=== PATIENT | male | born 1995 | race Caucasian/White ===

== ENCOUNTER 2018-04-04 07:19 | Observation (INO) ==
[2018-04-04] MEDS ORDERED: 0.9 % Sodium Chloride 1,000 ML IVC ONE (07:23)
--- NOTE | 2018-04-04 07:26 | Emergency Department Note ---
Disposition Clinical Impression: Alcoholic intoxication Disposition: Admitted As Inpatient Condition: Fair Forms: ED Satisfaction Letter Time of Disposition: 09:15 Altered Mental Status HPI - General Chief Complaint: ED Alcohol Abuse Stated Complaint: ALCOHOL INTOXICATION Time Seen by Provider: 04/04/18 07:22 Source: EMS Mode of arrival: EMS Limitations: altered mental status Nursing Notes Reviewed: Yes Vital Signs Reviewed: Yes - History of Present Illness MD complaint: altered mental status, intoxication Onset (ago): hour(s) Timing confirmed by: family member (Family went to bed at 2:00 in the evening an d he was okay and when they woke up at 6:00 this morning he was out.) Context: other (Patient was drinking last night. Reportedly drinking some kind of punch.) - Related Data Home Medications Medication Instructions Recorded Confirmed No Known Home Drugs 04/04/18 04/04/18 Allergies Allergy/AdvReac Type Severity Reaction Status Date / Time No Known Allergies Allergy Verified 04/04/18 07:20 Limitations: ROS unobtainable due to patients medical condition (Patient is intoxicated and not opening his eyes or being verbal) Gastrointestinal: Reports: vomiting Past Medical History - Past Medical History Source: nursing notes reviewed, other (EMS) Physical Exam - General Limitations: altered mental status General appearance: lethargic - Head Head exam: atraumatic, normocephalic, normal inspection - Eye Eye exam: Present: PERRL. Absent: scleral icterus, conjunctival injection - ENT ENT exam: mucous membranes moist, normal external ear exam - Neck Neck exam: Present: normal inspection. Absent: lymphadenopathy - Chest Chest inspection: Present: normal inspection, symmetric chest wall rise. Absent: tenderness - Respiratory Respiratory exam: Present: normal lung sounds bilaterally. Absent: respiratory distress, wheezes - Cardiovascular Cardiovascular exam: Present: normal rhythm, tachycardia, normal heart sounds - Abdominal Exam Abdominal exam: Present: soft, Non-Tender, normal bowel sounds. Absent: distention - Extremities Exam Extremities exam: Present: normal inspection. Absent: pedal edema - Neurological Exam Neurological exam: Present: other (Patient was visibly moving all 4 extremities) - Skin Skin exam: Present: warm, dry. Absent: rash Course Course Narrative: Patient was drinking fruit punch and vodka through the course of the night. This morning was found obtunded/intoxicated by family. I am seeing no indication of airway compromise at this time. Seems like he is intoxicated. Rest of the exam is unremarkable. No history or physical exam findings of trauma. We will give the patient IV fluids and check some labs. My shift will be ending shortly so I will be turning this case over to the day physician, Dr. Christina. - Reevaluation(s) Reevaluation #1: 22-year-old who has been turned over to my care at 0800 hrs. he is still sleeping he is nauseated when he does awake and aches is advised me at this time that he is had bourbon and vodka mixed with fruit punch unknown quantity when they found him like this when they brought him in the ER patient still arouses patient's arousable in no distress stronger like that of EtOH on his breath pupils round there is a patent Rosoff supple trachea is midline chest crusting heart regular rate and rhythm abdomen is soft supple positive bowel sounds extremities show full range of motion cranial nerves II through XII intact spoke with Dr. Harman for admission due to his alcohol taking approximately 16 hours to bring him down into legal limits recommend hospitalization for IV hydration Altered Mental Status - Differential Diagnosis Likely: alcoholic intoxication, altered mental status - Lab Data Result diagrams: 04/04/18 07:30 04/04/18 07:30 TPA Checklist - LKW: 3-4.5 hrs Add. Warnings/Precautions Patient/family understanding: The patient/family members have been counseled and understood the risk, benefit, and alternatives of treatment. Critical Care Time Critical Care Time: Yes Total Critical Care Time: 20 Attestation: 20 minutes hypothetic clinically significant life-threatening deterioration patient condition as a separate portable procedures as result patient being significantly intoxicated with levels greater than 300
[2018-04-04 07:40] LABS: Basophils % 0.2 %; Eosinophils % 0.2 %; Hematocrit 43.5 % (37.5-50.1); Hemoglobin 14.8 g/dL (12.9-16.9); Immature Granulocytes % 0.2 % (0-4); Lymphocytes # 1.1 K/mcL (0.6-4.6); Lymphocytes % 18.8 %; Mean Corpuscular Hemoglobin 30.3 pg (28.0-33.3); Mean Corpuscular Volume 89.1 fL (83.0-100.0); Monocytes # 0.2 K/mcL (0.0-1.3); Monocytes % 3.4 %; Neutrophils # 4.5 K/mcL (1.6-8.9); Platelet Count 140 K/mcL (140-400); Red Blood Count 4.88 M/mcL (4.19-5.50); Red Cell Distribution Width 12.6 % (11.5-14.5); Segmented Neutrophils % 77.2 %
[2018-04-04 07:51] LABS: VBG Creatinine 0.78 mg/dL (0.72-1.25)
[2018-04-04 09:02] LABS: BUN/Creatinine Ratio 11 (6-26); Blood Urea Nitrogen 11 mg/dL (6-20); Calcium 8.1 mg/dL (8.6-10.3); Carbon Dioxide 27 mEq/L (23-29); Chloride 101 mEq/L (98-107); Ethanol 351 mg/dL (Less than 10); Glucose 166 mg/dL (70-105); Osmolality,Calculated 281 (280-300); Potassium 3.5 mEq/L (3.5-5.1); Sodium 134 mEq/L (136-145); eGFR For Non-African Americans > 60 (> 60)
[2018-04-04] MEDS ORDERED: Thiamine (B-1) 100 MG, Folic Acid 1 MG, MVI, adult with vitamin K 10 ML in 0.9 % Sodi... IVPB ONE (09:28)
[2018-04-04] MEDS ORDERED: 0.9 % Sodium Chloride 1,000 ML IVC SCH (09:30)
[2018-04-04] MEDS ORDERED: Naloxone 0.4 MG/ML INJ IVP PRN (11:00)
[2018-04-04 11:16] LABS: Amphetamine Screen,Urine Negative ng/mL (Cutoff=1000); Barbiturate Screen,Urine Negative ng/mL (Cutoff=200); Benzodiazepines Screen,Urine Negative ng/mL (Cutoff=200); Cannabinoid Screen,Urine Negative ng/mL (Cutoff = 50); Cocaine Screen,Urine Negative ng/mL (Cutoff= 300); Opiate Screen,Urine Negative ng/mL (Cutoff=300); Phencyclidine Screen,Urine Negative ng/mL (Cutoff=25)
--- NOTE | 2018-04-04 12:43 | Internal Med History&Physical ---
Date of Encounter: 04/04/18 Time of Encounter: 12:20 Assessment and Plan (1) Alcoholic intoxication Current visit: Yes Status: Acute He has been started on normal saline IV. He will be ordered anti-emetics and analgesics as needed. Qualifiers: Complication of substance-induced condition: uncomplicated Qualified Code(s): F10.920 - Alcohol use, unspecified with intoxication, uncomplicated (2) Hypocalcemia Current visit: Yes Status: Acute Calcium level was 8.1 in emergency room. Albumin level not done. Recheck labs tonight. (3) Hyperglycemia Current visit: Yes Status: Acute Glucose was 166 in emergency room. Check hemoglobin A1c and recheck glucose tonight. (4) Hyponatremia Current visit: Yes Status: Acute Sodium level was 133 in emergency room. Recheck tonight. Internal Medicine - H&P: HPI Chief complaint: Intoxication Admitted From: Emergency Dept Plans for Post Hospital Care: Home History of present illness: Mr. German Gaspar is a 22 year old male who was brought to emergency room after he was found unresponsive approximately 0545 today by friends at the house where he had been having [employer] party. He consumed bourbon, vodka, and punch in unknown quantities per ER report. Evaluation in emergency room show blood alcohol level of 351 MG/DL. He was minimally responsive. He was admitted to [facility] floor for ongoing care needs. He states he feels "fine" and simply wants to sleep. His mother supplies the past history and states he does not drink alcohol or use illicit drugs as far she is aware. Past Med Surg Social Fam HX - Past Medical History Medical history: no medical history Psychiatric history: no psych history - Past Surgical History Surgical History: no surgical history - Social History Smoking Status: Never smoker Alcohol use: occasionally Drug use: none Internal Medicine - H&P: Meds No Known Home Drugs 04/04/18 [History] Allergy/AdvReac Type Severity Reaction Status Date / Time No Known Allergies Allergy Verified 04/04/18 07:20 All Systems PM: A 10-system review of systems was performed and is negative for pertinent findings except as documented above in the HPI. Review of systems: Gen.: His mother thinks his weight has decreased approximately 10 pounds in the past 18 months since starting college Cardiovascular: No history of MO hypertension heart failure angina DVT or pulmonary embolus Respiratory: He uses electronic cigarettes. He has no known lung disease. GI: There is no known disorders of liver gallbladder or exocrine pancreas : No known hematuria dysuria or kidney stones Neurologic: No large distribution strokes seizures or syncope Endocrine: No known diabetes thyroid disease or hyperlipidemia Hematology/oncology: No known blood disorders cancers or anemia Psychiatric: No known anxiety depression or other mental health issues. [place] skeletal: He had "growing pains" in his legs as a child. There is no other known bone joint or muscle disorders. - Constitutional Vitals: Temp Pulse Resp BP Pulse Ox 98.4 F 77 16 94/56 99 04/04/18 11:00 04/04/18 11:00 04/04/18 11:00 04/04/18 11:00 04/04/18 11:00 Exam: Gen.: He is a well-developed well-nourished male lying in bed who appears in no acute distress. He is lethargic but awakens and answers some questions and follows commands. HEENT: Head is atraumatic and normal cephalic. Eyes: EOMI. There is no scleral icterus. Mouth: Mucosa is moist. Neck: Supple and nontender. There is no thyromegaly or adenopathy noted. Heart: Regular without murmurs gallops or ectopics Lungs: No wheezes or crackles are heard. Abdomen: Soft and nontender. No masses or guarding are noted. Extremities: There is no cyanosis edema or clubbing noted. Dorsalis pedis and posterior tibial pulses are 2 over 2 bilaterally. Neurologic: Mental status: He answers few questions and follows commands. He is not conversational. Cranial nerves: Smile is symmetric. Forehead wrinkles bilaterally. Tongue protrudes midline. EOMI. Motor: There is no pronator drift. Cerebellar: Finger to nose is intact bilaterally. Skin: Warm and dry Internal Med - H&P Results - Labs CBC & Chem 7: 04/04/18 07:30 04/04/18 07:30 Labs: Short CBC 04/04/18 Range/Units 07:30 WBC 5.9 (4.3-11.1) K/mcL Hgb 14.8 (12.9-16.9) g/dL Hct 43.5 (37.5-50.1) % Plt Count 140 (140-400) K/mcL Neutrophils # 4.5 (1.6-8.9) K/mcL [facility] 04/04/18 07:30 Sodium 134 L Potassium 3.5 Chloride 101 Carbon Dioxide 27 BUN 11 Creatinine 1.04 Glucose 166 H Calcium 8.1 L
[2018-04-04] MEDS ORDERED: Ondansetron 4 MG/2 ML VIAL IVP PRN (12:50)
[2018-04-04] MEDS ORDERED: Acetaminophen 325 MG TABLET PO PRN (12:50)
[2018-04-04] MEDS: 0.9 % Sodium Chloride 1,000 ML IVC SCH (16:27)
[2018-04-04 16:54] LABS: Alanine Aminotransferase 19 Units/L (7-52); Albumin 3.6 g/dL (3.5-5.7); Albumin/Globulin Ratio 1.7 (1.1-2.2); Alkaline Phosphatase 46 Units/L (34-104); Aspartate Amino Transferase 15 Units/L (13-39); BUN/Creatinine Ratio 8 (6-26); Bilirubin,Total 0.5 mg/dL (0.3-1.0); Blood Urea Nitrogen 7 mg/dL (6-20); Carbon Dioxide 26 mEq/L (23-29); Chloride 110 mEq/L (98-107); Globulin 2.1 g/dL (2.4-3.5); Glucose 101 mg/dL (70-105); Magnesium 1.7 mg/dL (1.6-2.6); Osmolality,Calculated 290 (280-300); Potassium 4.2 mEq/L (3.5-5.1); Sodium 141 mEq/L (136-145); Total Protein 5.7 g/dL (6.4-8.9); eGFR For Non-African Americans > 60 (> 60)
[2018-04-05] MEDS: 0.9 % Sodium Chloride 1,000 ML IVC SCH (02:11)
[2018-04-05 06:23] VITALS: BP 94/51
--- NOTE | 2018-04-05 09:41 | Discharge Summary ---
Date of Encounter: 04/05/18 Time of Encounter: 09:35 - Discharge Diagnosis (1) Alcoholic intoxication Priority: Primary Status: Resolved Qualifiers: Complication of substance-induced condition: uncomplicated Qualified Code(s): F10.920 - Alcohol use, unspecified with intoxication, uncomplicated (2) Hypocalcemia Priority: Secondary Status: Acute (3) Hyperglycemia Priority: Secondary Status: Resolved (4) Hyponatremia Priority: Secondary Status: Resolved Hospital course: Mr. German Gaspar is a 22 year old male who was brought to emergency room after he was found unresponsive approximately 0545 today by friends at the house where he had been having [employer] party. He consumed bourbon, vodka, and punch in unknown quantities per ER report. Evaluation in emergency room show blood alcohol level of 351 MG/DL. He was minimally responsive. He was admitted to [facility] floor for ongoing care needs. Initial orders were written by the emergency room physician. I saw him on April 04 and performed a history and physical. He was given IV fluids. He had clinical improvement and was able to ambulate and ingest adequate amount of food and fluids without difficulty. There were no new problems that developed and on the morning of April 05 he felt stable for discharge home. Follow-up lab work done the afternoon of April 04 showed normalization of hypo natremia and hyperglycemia. His calcium level was still slightly low at 8.0 with albumin 3.6. His PCP can follow up on this. He will follow with Dr. Xavier within 1 week. - Time Spent with Patient Total time spent providing and/or coordinating discharge services: - Discharge Medications Home Medications: No Known Home Drugs 04/04/18 [History] Allergies/Adverse Reactions: Allergy/AdvReac Type Severity Reaction Status Date / Time No Known Allergies Allergy Verified 04/04/18 07:20 Date of admission: 04/04/18 09:23 Primary care physician: Live Xavier M.D. - Constitutional Vitals: Temp Pulse Resp BP Pulse Ox 98.1 F 59 16 94/51 98 04/05/18 06:00 04/05/18 06:00 04/05/18 06:00 04/05/18 06:00 04/05/18 06:00 - Patient Status Disposition: Home, Self-Care Condition: Fair - Discharge Instructions Follow Up With: NONE,PCP [Primary Care Provider] - 1 week - Diet and Activity Activity: resume usual activities as tolerated Diet: advance to your usual diet
== END 2018-04-05 10:30 | disposition home or self-care (01) ==
LOC: INPPIK 07:19 → EMEROOPIK 07:19 → INPPIK 10:16
PROVIDERS: ADMIT Internal Medicine; ATTEND Internal Medicine